=== PATIENT | female | born 1995 | race Caucasian/White ===

== ENCOUNTER 2017-07-22 06:59 | Emergency (ER) | payer SELFPAY ==
[2017-07-22 07:08] VITALS: BP 115/65; BMI 39.3
--- NOTE | 2017-07-22 07:45 | DR.GENAD ---
HPI - PCP Primary Care Physician: NFD - Complaint/Symptoms Chief Complaint Doctors Comments: Patient presents with complaint of dysuria she is taking otc medication for uti but it is not helping. She admits to frequency with little flow. Chief Complaint:: UTI. BURNING AND FREQUENT URINATION. PT STATES SHE HAS A LOT OF DISCOMFORT Self Treatment fo Chief Complaint: PT STATES THIS HAS BEEN GOING ON ABOUT A WEEK NOW - Source History Provided: Patient - Mode of Arrival Mode of Arrival: Ambulatory - Timing Onset of Chief Complaint: 07/22/17 PMH - PMH Past Medical History: No Past Surgical History: Yes Surgical History: Other Past Surgical History Comment: WISDOM TEETH REMOVED - Family History History of Family Medical Conditions: Yes Family Medical History: Diabetes Mellitus, Coronary Artery Disease, Hypertension - Social History Does patient currently use any type of tobacco product: Yes Have you used tobacco products in the last 12 months: Yes Type of Tobacco Use: Cigarettes How many years tobacco product used: 3 Does any household member use tobacco: Yes Alcohol Use: None Do you use any recreational Drugs:: No Lives With: Family Lives Where: Home - infectious screening In the last 2 months have you had wt loss of >10#?: NO Have you had fever, night sweats or hemotysis?: No Have you traveled outside the country in the last 6 months?: No Isolation: Standard ROS - Review of Systems Eyes: No Symptoms Reported ENTM: No Symptoms Reported Respiratoy: No Symptoms Reported Cardiovascular: No Symptoms Reported Gastrointestinal/Abdominal: No Symptoms Reported Genitourinary: No Symptoms Reported Neurological: No Symptoms Reported Musculoskeletal: No Symptoms Reported Integumentary: No Symptoms Reported PE - Vital Signs Vitals: Temperature 98.7 F Pulse Rate 97 Respiratory Rate 20 Blood Pressure 115/65 O2 Sat by Pulse Oximetry 97 - General Limitations: No Limitations General Appearance: Alert - Head Head Exam: Normal Inspection, Atraumatic - Eyes Eye exam: Normal Appearance, PERRL, EOMI - ENT ENT Exam: Normal Exam External Ear Exam: Normal External Inspection TM/Canal Exam: Bilateral Normal Nose Exam: Normal Nose Exam Mouth Exam: Normal Inspection Throat Exam: Normal Inspection - Neck Neck Exam: Normal Inspection, Full ROM - Chest Chest Inspection: Normal Inspection, Symmetric Chest Wall Rise - Respiratory Respiratory Exam: Normal Lung Sounds Bilat Respiratory Exam: Bilateral Clear to Auscultation - Cardiovascular Cardiovascular Exam: Regular Rate, Normal Rhythm - Abdominal Exam Abdominal Exam: Normal Inspection Abdominal Tenderness: negative: RUQ, RLQ, LUQ, LLQ, Epigastrium, Suprapubic, Diffuse, Mild, Moderate, Severe, Other - Extremities Extremities Exam: Normal Inspection, Full ROM - Back Back Exam: Normal Inspection, Full ROM - Neurologic Neurological Exam: Alert, Oriented X3, CN II-XII Intact - Psychiatric Psychiatric Exam: Normal Affect, Normal Mood - Skin Skin Exam: Warm, Dry, Intact ROR - Labs Reviewed Laboratory Results Reviewed?: Yes (Urine: 8-10 wbc, moderate mucus) Laboratory: Specimen Type Clean catch urine 07/22/17 07:23 Urine Color Arden (YELLOW) 07/22/17 07:23 Urine Appearance Hazy (CLEAR) 07/22/17 07:23 Urine RBC 2-4 /HPF (NEGATIVE) 07/22/17 07:23 Urine WBC 8-10 /HPF (NEGATIVE) 07/22/17 07:23 Ur Squamous Epith Cells Moderate /HPF (NEGATIVE) 07/22/17 07:23 Calcium Oxalate Crystal Few /HPF (NEGATIVE) 07/22/17 07:23 Urine Bacteria 1+ /HPF (Negative) 07/22/17 07:23 Urine Mucus Moderate /HPF (NEGATIVE) 07/22/17 07:23 Ur Culture Indicated? Yes/culture set up 07/22/17 07:23 Micro UA Comment Unable to perform (-) 07/22/17 07:23 - Diagnosis Discharge Problem: UTI (urinary tract infection) Qualifiers: Urinary tract infection type: site unspecified Hematuria presence: without hematuria Qualified Code(s): N39.0 - Urinary tract infection, site not specified - Discharge Plan Condition: Stable - Follow ups/Referrals Follow ups/Referrals: NFD,None [Primary Care Provider] - 3 days - Instructions
[2017-07-22 07:47] LABS: APPEARANCE,URINE HAZY (CLEAR); BACTERIA,URINE 1+ /HPF (Negative); CALCIUM OXALATE CRYSTALS,UR FEW /HPF (NEGATIVE); COLOR,URINE ORANGE (YELLOW); MUCUS,URINE MODERATE /HPF (NEGATIVE); SQUAMOUS EPITHELIAL CELL,UR MODERATE /HPF (NEGATIVE)
== END 2017-07-22 07:57 | disposition home or self-care (01) ==
LOC: ER 06:59
DX: N39.0 Urinary tract infection, site not specified (principal); B96.1 Klebsiella pneumoniae [K. pneumoniae] as the cause of diseases classified elsewhere
CPT/HCPCS: 81015; 87086; 87088; 87186; 99282